=== PATIENT | female | born 1970 | race African-American/Black ===

== ENCOUNTER 2020-10-05 05:16 | Inpatient (IN) ==
[2020-09-30 16:21] LABS: Basophils % 0.3 % (0.0-0.8); Eosinophils # 0.1 10*3/uL (0.0-0.87); Eosinophils % 1.8 % (0.00-10.9); Hematocrit 39.5 VOL% (35.7-47.0); Immature Granulocytes % 0.2 %; Immature Granulocytes Absolute 0.01 #; Lymphocytes # 1.9 10*3/uL (1.4-4.0); Lymphocytes % 28.6 % (21.3-54.2); Mean Corpuscular HGB Conc 32.9 GM/DL (32-36); Mean Corpuscular Volume 90.8 FL (87-102); Monocytes % 9.8 % (1.7-12.7); Neutrophils % 59.3 % (38.7-73.9); Platelet Count 249 T/CUMM (130-400); Red Blood Count 4.35 MC/CUMM (3.8-5.5); Red Cell Distribution Width 13.6 % (9.3-17.3); White Blood Count 6.5 T/CUMM (4-12)
[2020-09-30 16:27] LABS: Bilirubin,Urine Negative (Negative); Blood, Urine Small mg/dL (Negative); Glucose,Urine (UA) Negative (Negative); Ketones,Urine Negative (Negative); Nitrite,Urine Negative (Negative); Protein,Urine Negative; RBC,Urine 1 /HPF (0-4); Squamous Epithelial Cell,Urine Occasional /HPF (0-10); Urine Appearance CLEAR (Clear); Urine Color Straw (Yellow); Urine Specific Gravity 1.003 (1.001-1.035); Urine Urobilinogen < 2.0 EU/DL (0.2-1.0); WBC,Urine <1 /HPF (0-6)
[2020-09-30 16:29] LABS: INR 0.9; Partial Thromboplastin Time 25.8 SECS (23.9-33.8)
[2020-09-30 16:38] LABS: Calcium 9.5 MG/DL (8.5-10.1); Osmolality,Calculated 270.8 MOS/KG (273-304)
[2020-10-05] MEDS ORDERED: CLINDAMYCIN INJ 900 MG in PREMIX 1 EACH IV ONE (06:00)
[2020-10-05] MEDS ORDERED: LEVOFLOXACIN INJ 750 MG in PREMIX 1 EACH IV ONE (06:00)
[2020-10-05] MEDS ORDERED: ROCURONIUM 50 MG/5 ML VIAL IV ONE ×2 (06:22→08:35)
[2020-10-05] MEDS ORDERED: MIDAZOLAM 2 MG/2 ML VIAL ONE (06:22)
[2020-10-05] MEDS ORDERED: LIDOCAINE 2% 5 ML VIAL ONE (06:22)
[2020-10-05] MEDS ORDERED: propofoL 200 MG/20 ML VIAL IV ONE (06:22)
[2020-10-05] MEDS ORDERED: fentaNYL 100 MCG/2 ML VIAL ONE ×2 (06:22→07:14)
[2020-10-05] MEDS ORDERED: DEXAMETHASONE 4 MG/1 ML VIAL ONE ×2 (06:27→07:30)
[2020-10-05] MEDS ORDERED: ROPIVACAINE 0.5% 30 ML VIAL ONE (06:27)
[2020-10-05] MEDS ORDERED: LIDOCAINE 1% 5 ML VIAL ONE (06:30)
[2020-10-05] MEDS ORDERED: FAMOTIDINE 20 MG/2 ML VIAL IV ONE (06:42)
[2020-10-05] MEDS ORDERED: LACTATED RINGERS 1,000 ML IV SCH ×2 (07:00→09:30)
[2020-10-05] MEDS ORDERED: ESMOLOL 100 MG/10 ML VIAL IV ONE (07:24)
[2020-10-05] MEDS ORDERED: ONDANSETRON 4 MG/2 ML VIAL ONE (07:30)
[2020-10-05] MEDS ORDERED: ACETAMINOPHEN 1,000 MG/100 ML VIAL IV ONE (07:31)
[2020-10-05] MEDS ORDERED: KETOROLAC 30 MG/1 ML VIAL ONE (07:31)
[2020-10-05] MEDS ORDERED: PHENYLEPHRINE 1 MG/10 ML SYRINGE IV ONE (07:33)
[2020-10-05] MEDS ORDERED: LACTATED RINGERS 1,000 ML IV ONE (08:24)
[2020-10-05] MEDS ORDERED: SEVOFLURANE 1 UNIT/15 MINUTE INH ONE ×7 (08:24→09:26)
[2020-10-05] MEDS ORDERED: SODIUM CHLORIDE 0.9% 1,000 ML IV ONE (08:24)
[2020-10-05] MEDS ORDERED: SUGAMMADEX 200 MG/2 ML VIAL IV ONE (08:51)
[2020-10-05] MEDS ORDERED: HYDROmorphone 2 MG/1 ML VIAL ONE ×2 (09:09→09:34)
[2020-10-05] MEDS ORDERED: ACETAMINOPHEN 325 MG TABLET PO PRN (09:25)
[2020-10-05] MEDS ORDERED: BISACODYL 10 MG SUPP RECTAL PRN (09:25)
[2020-10-05] MEDS ORDERED: BENZOCAINE/MENTHOL LOZENGE 18/BOX PO PRN (09:25)
[2020-10-05] MEDS: HYDROmorphone 2 MG/1 ML VIAL IV PRN ×3 (09:35→09:50)
[2020-10-05] MEDS ORDERED: ONDANSETRON 4 MG/2 ML VIAL IV PRN (09:41)
[2020-10-05 09:50] LABS: Bilirubin,Urine Negative (Negative); Blood, Urine Small mg/dL (Negative); Glucose,Urine (UA) Negative (Negative); Ketones,Urine Negative (Negative); Mucus,Urine Occasional /LPF (Occasional); Nitrite,Urine Negative (Negative); Protein,Urine Negative; RBC,Urine 1 /HPF (0-4); Squamous Epithelial Cell,Urine Occasional /HPF (0-10); Urine Appearance CLEAR (Clear); Urine Color Yellow (Yellow); Urine Specific Gravity 1.008 (1.001-1.035); Urine Urobilinogen < 2.0 EU/DL (0.2-1.0); WBC,Urine <1 /HPF (0-6)
[2020-10-05] MEDS ORDERED: MEPERIDINE 25 MG/1 ML VIAL ONE (09:59)
[2020-10-05] MEDS ORDERED: MEPERIDINE 50 MG/1 ML VIAL IV ONE (10:03)
[2020-10-05] MEDS: ONDANSETRON 4 MG/2 ML VIAL IV PRN ×2 (12:11→17:41)
[2020-10-05] MEDS ORDERED: MEPERIDINE 50 MG/1 ML VIAL IV PRN (13:10)
[2020-10-05] MEDS: CLINDAMYCIN INJ 900 MG in PREMIX 1 EACH IV SCH ×2 (15:55→23:29)
[2020-10-05] MEDS ORDERED: SCOPOLAMINE 1.5 MG PATCH TRANSDERM ONE (17:36)
[2020-10-05] MEDS: SIMETHICONE CHEW 80 MG TABLET PO PRN (18:16)
[2020-10-05] MEDS ORDERED: KETOROLAC 30 MG/1 ML VIAL IV PRN (19:41)
[2020-10-06] MEDS: IBUPROFEN 800 MG TABLET PO PRN ×2 (06:27→14:50)
[2020-10-06] MEDS: SIMETHICONE CHEW 80 MG TABLET PO PRN ×2 (06:28→08:30)
[2020-10-06 06:40] LABS: Basophils % 0.2 % (0.0-0.8); Hematocrit 38.5 VOL% (35.7-47.0); Hemoglobin 12.7 GM/DL (12.0-16.0); Immature Granulocytes % 0.4 %; Immature Granulocytes Absolute 0.05 #; Lymphocytes # 1.9 10*3/uL (1.4-4.0); Lymphocytes % 15.7 % (21.3-54.2); Mean Corpuscular Volume 91.9 FL (87-102); Mean Platelet Volume 10.8 FL (9.6-12.0); Monocytes % 8.7 % (1.7-12.7); Platelet Count 242 T/CUMM (130-400); Red Blood Count 4.19 MC/CUMM (3.8-5.5); Red Cell Distribution Width 13.9 % (9.3-17.3); White Blood Count 11.9 T/CUMM (4-12)
[2020-10-06] MEDS: MAGNESIUM HYDROXIDE SUSP 30 ML UDCUP PO PRN ×2 (08:30→19:50)
[2020-10-06] MEDS: DOCUSATE SODIUM 100 MG CAPSULE PO PRN ×2 (08:30→19:50)
[2020-10-06] MEDS: hydroCHLOROthiazide 25 MG TABLET PO SCH (09:22)
[2020-10-07] MEDS: IBUPROFEN 800 MG TABLET PO PRN ×2 (00:46→12:29)
[2020-10-07] MEDS ORDERED: MAGNESIUM CITRATE 300 ML BOTTLE PO ONE (07:12)
[2020-10-07 07:14] VITALS: BP 151/87
[2020-10-07] MEDS: METOCLOPRAMIDE 10 MG TABLET PO SCH ×2 (09:17→15:10)
[2020-10-07] MEDS: SIMETHICONE CHEW 80 MG TABLET PO PRN ×2 (09:17→15:10)
[2020-10-07] MEDS: DOCUSATE SODIUM 100 MG CAPSULE PO PRN (09:17)
[2020-10-07] MEDS: hydroCHLOROthiazide 25 MG TABLET PO SCH (09:18)
[2020-10-07] MEDS: MAGNESIUM HYDROXIDE SUSP 30 ML UDCUP PO PRN (12:29)
== END 2020-10-07 16:15 | disposition home or self-care (01) | DRG 743 ==
LOC: N.OR 05:16 → N.SDSINP 05:19 → EDSTATUS 07:30 → N.OB 09:01
PROVIDERS: ADMIT Specialist; ATTEND Specialist